=== PATIENT | male | born 1980 | race Caucasian/White ===

== ENCOUNTER 2021-07-07 19:13 | Emergency (ER) | payer OTHER, SELFPAY ==
[2021-07-07 19:18] VITALS: BP 144/76; PULSE 67; RESP 12; TEMP 36.7; O2SAT 98
[2021-07-07 19:22] VITALS: BP 144/76; PULSE 67; RESP 12; TEMP 36.7; O2SAT 98
--- NOTE | 2021-07-07 19:29 | ED.SKABFB ---
HPI - Skin/Abscess/Foreign Bdy General Chief complaint: Urogenital-Male Stated complaint: yeast infection Source: patient and RN notes reviewed Limitations: no limitations History of Present Illness HPI narrative: The patient, who has a previous history of obesity and AODM, presents with skin eruption. Patient states he has about 1/2-month history of recurrent pink, mildly itchy and red eruption on the around top of his uncircumcised penis. This is similar to a prior eruption preceding his diagnosis of diabetes, for which he was treated with Diflucan. Symptoms are mild and only slightly better after treatment with OTC preparations like Lotrimin. No fever, significant discharge, excoriation, frequency/dysuria. Related Data Home Medications Medication Instructions Recorded Confirmed atorvastatin 07/07/21 empagliflozin [Jardiance] mg 07/07/21 lisinopril-hydrochlorothiazide tablet 07/07/21 metformin mg PO 07/07/21 omeprazole 07/07/21 vortioxetine [Trintellix] mg 07/07/21 Allergies Allergy/AdvReac Type Severity Reaction Status Date / Time No Known Allergies Allergy Verified 01/20/17 08:09 Review of Systems Review of Systems: General/Constitutional: No weight loss,fever Eyes: N0: Redness,discharge Ears/Nose/Throat: No: Epistaxis,ear discharge Respiratory: Denies: Hemoptysis Gastrointestinal: No Vomiting, Bleeding-rectal Skin: No Lumps, REPORTS eruption Neurologic: No Focal Weakness,Sz Hematologic: Denies: Petechiae/Purpura Psychiatric: No: Suicida ideationl All Other Systems: Reviewed and Negative [facility] Family History Family History (Updated 04/23/16 @ 23:21 by DOCTOR UNKNOWN) Father Hypertension Mother Hypertension Sibling Patient's brother is in good health Social History Social History Smoking status: Never smoker Alcohol intake: never Comments At time of signature, agree with nursing past medical, surgical, social and family history. There is no relevant family history pertinent to the presenting complaint Exam Narrative: General Appearance: Well appearing, Conjunctiva clear Mouth/Throat: Normal appearing, Normal lips, Supple Respiratory: Airway patent, No respiratory distress Abdomen: Soft, Non-tender, Musculoskeletal: Full ROM Skin: Warm, Dry, pink, inflamed skin of the foreskin without glans involvement Neurological: A&O x3, Normal affect Course Vital Signs Vital signs: Vital Signs Temperature 98.1 F 07/07/21 19:18 Pulse Rate 67 07/07/21 19:18 Respiratory Rate 12 07/07/21 19:18 Blood Pressure 144/76 H 07/07/21 19:18 Pulse Oximetry 98 07/07/21 19:18 Temperature 98.1 F 07/07/21 19:22 Pulse Rate 67 07/07/21 19:22 Respiratory Rate 12 07/07/21 19:22 Blood Pressure 144/76 H 07/07/21 19:22 Pulse Oximetry 98 07/07/21 19:22 Discharge Plan Discharge Clinical Impression: Balanitis Patient Disposition: Home, Self-Care Condition: Stable Instructions: Jan (ED) Prescriptions: New fluconazole 150 mg tablet 150 mg PO WEEKLY Qty: 2 RF: 2 mupirocin 2 % ointment 1 applic TOPICAL TID Qty: 30 RF: 1 No Action atorvastatin 40 mg tablet RF: 0 lisinopril-hydrochlorothiazide 20-12.5 mg tablet RF: 0 omeprazole 40 mg capsule,delayed release(DR/EC) RF: 0 metformin 500 mg tablet extended release 24 hr PO RF: 0 Trintellix 10 mg tablet RF: 0 Jardiance 25 mg tablet RF: 0 Follow-up/Referrals: Reggie,Eulogio Gonzalez MD [Primary Care Provider] -
== END 2021-07-07 19:37 | disposition home or self-care (01) ==
PROVIDERS: Emergency Provider Emergency Medicine; PCP Internal Medicine
DX: B37.42 Candidal balanitis (principal); E78.00 Pure hypercholesterolemia, unspecified; I10 Essential (primary) hypertension; K21.9 Gastro-esophageal reflux disease without esophagitis; E11.9 Type 2 diabetes mellitus without complications
CPT/HCPCS: 99213; G0463

== ENCOUNTER 2024-09-10 09:53 | Emergency (ER) | payer OTHER, SELFPAY ==
[2024-09-10 10:26] VITALS: BP 120/80; PULSE 71; RESP 16; TEMP 36.4; O2SAT 98
[2024-09-10 10:57] LABS: EDCOVIDSCREEN Negative (Negative)
[2024-09-10 10:58] LABS: EDINFLUASCREEN Negative (Negative); EDINFLUBSCREEN Negative (Negative)
--- NOTE | 2024-09-10 10:59 | ED.URI ---
HPI - URI/Sore Throat General Chief Complaint: Upper Respiratory Infection Stated Complaint: Cough/Congestion Time Seen by Provider: 09/10/24 10:59 Source: patient Mode of arrival: ambulatory Limitations: no limitations History of Present Illness HPI Narrative: 44 yo M presents with c/o nasal congestion, sinus pressure, intermittent headaches, fatigue, coughing, PND for 7 to 8 days. Exposure to pneumonia from his son. Pt states seems more like sinus infection than pneumonia . no CP or SOB. Patient going on vacation to [place] and awake. All systems reviewed and negative except as noted above. Related Data Home Medications ?Medication ?Instructions ?Recorded ?Confirmed ?Last Taken ?Type atorvastatin 40 mg tablet 07/07/21 Unknown History empagliflozin 25 mg tablet mg 07/07/21 Unknown History (Jardiance) lisinopril 20 tablet 07/07/21 Unknown History mg-hydrochlorothiazide 12.5 mg tablet vortioxetine 10 mg tablet mg 07/07/21 Unknown History (Trintellix) Nexium 09/10/24 Unknown History icosapent ethyl 1 gram capsule g PO 09/10/24 Unknown History tirzepatide 12.5 mg/0.5 mL mg subcut 09/10/24 Unknown History subcutaneous pen injector (Mounjaro) Allergies Allergy/AdvReac Type Severity Reaction Status Date / Time No Known Allergies Allergy Verified 09/10/24 10:30 Review of Systems Review of Systems: CONSTITUTIONAL: Denies fever, chills, or sweats. Reports fatigue. EYES: Denies visual changes, redness, or discharge. ENT: Reports rhinorrhea, congestion, sinus congestion, sinus pressure, postnasal drainage, sore throat. Denies otalgia. CARDIOVASCULAR: Denies chest pain, palpitations, or edema. RESPIRATORY: Reports cough. Denies dyspnea. GASTROINTESTINAL: Denies abdominal pain, nausea, vomiting, or diarrhea. GENITOURINARY: Denies dysuria or hematuria. SKIN: Denies rash or itching. MUSCULOSKELETAL: Denies back pain, joint pain, or myalgia. NEUROLOGIC: Denies headache, numbness, or weakness. PSYCHIATRIC: Denies anxiety or depression. All other systems reviewed are negative, except as documented in HPI. COUNT INCLUDES THE [facility] Family History Family History (Updated 04/23/16 @ 23:21 by DOCTOR UNKNOWN) Father Hypertension Mother Hypertension Sibling Patient's brother is in good health Social History Social History Smoking status: Never smoker Alcohol intake: never Comments At time of signature, agree with nursing past medical, surgical, social and family history. There is no relevant family history pertinent to the presenting complaint. Exam Narrative: GENERAL: This is a well-nourished, well-developed patient, in no apparent distress. HEAD: normocephalic, atraumatic. EYES: PERRL. Sclera clear/white. Vision is grossly intact. EARS: External ears normal, auditory canals clear and without drainage, TMs normal without perforation. Hearing grossly intact. NOSE: External nose normal with congestion, purulent nasal drainage, erythema and swelling to bilateral nares. Frontal sinus tenderness on palpation THROAT: Mucous membranes moist, postnasal drainage with erythema. No swelling or exudates. NECK: Neck supple, non-tender without lymphadenopathy, masses or thyromegaly. CARDIOVASCULAR: Regular rate and rhythm without murmurs, gallops, or rubs. RESPIRATORY: Clear to auscultation. Breath sounds equal bilaterally. No wheezes, rales, or rhonchi. SKIN: warm, Dry, intact with no suspicious lesions or rash, good texture and turgor. NEURO: awake, alert, and oriented to person, place and time. There were no obvious focal neurologic abnormalities. EXTREMITIES: No joint tenderness, effusion, or edema noted. Course Course Level of Care: Express Care Visit Vital Signs Vital signs: Vital Signs Temperature 36.4 C 09/10/24 10:26 Pulse Rate 71 09/10/24 10:26 Respiratory Rate 16 09/10/24 10:26 Blood Pressure 120/80 09/10/24 10:26 Pulse Oximetry 98 09/10/24 10:26 Oxygen Delivery Room Air 09/10/24 10:26 Temperature 36.4 C 09/10/24 10:26 Pulse Rate 71 09/10/24 10:26 Respiratory Rate 16 09/10/24 10:26 Blood Pressure 120/80 09/10/24 10:26 Pulse Oximetry 98 09/10/24 10:26 Oxygen Delivery Room Air 09/10/24 10:26 Reviewed MDM - URI/Sore Throat MDM Narrative Medical decision making narrative: Negative COVID and influenza test. Patient is well-appearing. Lungs clear to auscultation. Will treat patient for bacterial sinusitis due to duration of symptoms and exam findings. Patient agrees with plan of care. Patient is aware of diagnosis, understands and agrees to treatment plan. Anticipatory guidance given. Patient agrees to follow-up as directed and is aware of reasons to seek care at the emergency department. Portions of this record may have been created with voice recognition software Differential Diagnosis Differential diagnosis: Likely upper respiratory infection, sinusitis, viral infection and influenza Lab Data Labs: Lab Results 09/10/24 Range/Units 10:30 POC Influenza A Ag Negative (Negative) POC Influenza B Ag Negative (Negative) POC SARS CoV-2 Ag Negative (Negative) Discharge Plan Discharge Clinical Impression: Acute bacterial sinusitis Patient Disposition: Home, Self-Care Condition: Stable Instructions: Antibiotic Form, Sinusitis (ED) Additional Instructions: Take medications as prescribed. Continue taking [id number] antihistamine daily such as Claritin or Zyrtec. Continue using Zicam daily. Drink at least 64 oz of water a day. Place cool mist humidifier in bedroom where you sleep. Follow-up with your primary care physician if symptoms are not improving. Patient Language: Frisian Prescriptions: New doxycycline hyclate 100 mg capsule 100 mg PO BID 7 Days Qty: 14 0RF methylprednisolone [Medrol (Kade)] 4 mg tablets,dose pack See Rx Instructions PO .COMPLEX Qty: 21 0RF Rx Instructions: orally per package directions No Action atorvastatin 40 mg tablet lisinopril-hydrochlorothiazide 20-12.5 mg tablet Trintellix 10 mg tablet Jardiance 25 mg tablet fluconazole 150 mg tablet 150 mg PO WEEKLY Qty: 2 2RF Rx Instructions: as a single dose mupirocin 2 % ointment 1 applic TOPICAL TID Qty: 30 1RF Mounjaro 12.5 mg/0.5 mL pen injector SUBCUT icosapent ethyl 1 gram capsule PO Nexium Follow-up/Referrals: Reggie,Eulogio Gonzalez MD [Primary Care Provider] - Time of Disposition: 11:06
== END 2024-09-10 11:10 | disposition home or self-care (01) ==
PROVIDERS: Emergency Provider Nurse Practitioner Family; PCP Internal Medicine
DX: J01.90 Acute sinusitis, unspecified (principal); Z20.822 Contact with and (suspected) exposure to COVID-19
CPT/HCPCS: 87426; 87804; 99213; G0463